=== PATIENT | female | born 1980 | race African-American/Black ===

== ENCOUNTER 2025-02-10 22:14 | Emergency (ER) | payer OTHER ==
[~2025-02-10] VITALS: Ht 165.1 cm; Wt 80.0 kg
[2025-02-10 23:47] VITALS: O2SAT 100
[2025-02-11] MEDS: PROCHLORPERAZINE MALEATE 10MG TABLET PO ONE (03:25)
[2025-02-11] MEDS: KETOROLAC 30MG/ML VIAL IM ONE (03:25)
[2025-02-11] MEDS: DIPHENHYDRAMINE 12.5MG/5ML UDC PO ONE (03:25)
[2025-02-11] MEDS: DEXAMETHASONE 4MG TABLET PO ONE (03:28)
[2025-02-11] MEDS: SUMATRIPTAN SUCCINATE 25MG TABLET PO ONE (03:29)
[2025-02-11 04:12] LABS: BASOPHILS % 0.4 % (0.0-2.0); EOSINOPHILS % 6.0 % (0.0-5.0); HEMATOCRIT. 38.7 % (36.0-48.0); HEMOGLOBIN. 12.8 g/dL (12.0-16.0); LYMPHOCYTES % 42.8 % (20.0-50.0); MEAN PLATELET VOLUME 8.8 fl (7.4-10.4); MONOCYTES % 6.3 % (2.0-8.0); NEUTROPHILS % 44.5 % (40.0-76.0); PLATELET 261 x1000/uL (130-400); RED BLOOD CELL COUNT 4.76 mill/uL (4.2-5.4); RED CELL DISTRIBUTION WIDTH 15.0 % (11.6-14.6)
[2025-02-11 04:29] LABS: CREATININE 0.8 mg/dL (0.6-1.0); UREA NITROGEN BLOOD 10 mg/dL (9-23)
[2025-02-11 04:30] LABS: TROPONIN I HIGH SENSITIVITY < 4 ng/L (3.0-34)
[2025-02-11 04:31] LABS: ASPARTATE AMINOTRANSFERASE 24 IU/L (<34); BILIRUBIN DIRECT 0.1 mg/dL (<=3.0); BILIRUBIN TOTAL 0.4 mg/dL (0.1-1.0); PROTEIN TOTAL 7.4 g/dL (6.0-8.3)
[2025-02-11 05:14] LABS: CLARITY URINE CLEAR (CLEAR); COLOR URINE YELLOW (YELLOW); GLUCOSE URINE NEGATIVE (NEGATIVE); KETONES URINE NEGATIVE (NEGATIVE); LEUKOCYTE ESTERASE URINE 2+ (NEGATIVE); NITRITE URINE NEGATIVE (NEGATIVE); OCCULT BLOOD URINE NEGATIVE (NEGATIVE); PH URINE 5.5 (4.5-8.0); PROTEIN URINE NEGATIVE (NEGATIVE); SPECIFIC GRAVITY URINE 1.019 (1.005-1.030); UROBILINOGEN URINE 1.0 E.U./dL (0.2-1.0)
[2025-02-11 07:41] LABS: WBC URINE 15-25 /hpf (0-2)
[2025-02-11 07:42] LABS: BACTERIA URINE 1+; SQUAMOUS EPITHELIAL CELL URINE 2+ /lpf (RARE/1+); YEAST URINE NONE SEEN
[2025-02-11 11:33] VITALS: BP 138/85; PULSE 80; RESP 12; TEMP 37.1; O2SAT 100
== END 2025-02-11 11:34 | disposition home or self-care (01) ==
LOC: ER 22:14
DX: I10 Essential (primary) hypertension (principal); R51.9 Headache, unspecified; N39.0 Urinary tract infection, site not specified; F10.90 Alcohol use, unspecified, uncomplicated; Y90.9 Presence of alcohol in blood, level not specified
CPT/HCPCS: 99285; 80076; 80048; 81003; 85025; 87086; 84484; 87077; 36415; 71045; 93005; 96372; J8540; Q0164; Q0163; J1885; Z7610 ×2